=== PATIENT | male | born 1985 | race African-American/Black ===

== ENCOUNTER 2024-04-03 14:02 | Emergency (ER) | payer OTHER, BC, SELFPAY ==
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
[2024-04-03 14:18] VITALS: BP 106/68; PULSE 82; RESP 20; TEMP 37.1; O2SAT 99
--- NOTE | 2024-04-03 14:21 | PC.NURSE ---
Was seen at a [facility] in [facility] and diagnosed.
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
== END 2024-04-03 15:51 | disposition home or self-care (01) ==
PROVIDERS: Emergency Provider Nurse Practitioner Family
DX: Z48.01 Encounter for change or removal of surgical wound dressing (principal); T14.8XXD Other injury of unspecified body region, subsequent encounter; V49.40XD Driver injured in collision with unspecified motor vehicles in traffic accident, subsequent encounter
CPT/HCPCS: 99211; 99212; G0463